=== PATIENT | male | born 1980 | race Two or more races ===

== ENCOUNTER 2018-02-04 04:22 | Emergency (ER) | payer OTHER ==
[~2018-02-04] VITALS: Ht 180.3 cm; Wt 81.6 kg
[2018-02-04] MEDS ORDERED: KETOROLAC TROMETH 60MG/2ML VIAL IM ONE (07:00)
[2018-02-04 07:15] VITALS: BP 117/82
== END 2018-02-04 07:40 | disposition home or self-care (01) ==
LOC: ER 04:22
DX: S52.571A Other intraarticular fracture of lower end of right radius, initial encounter for closed fracture (principal); W01.0XXA Fall on same level from slipping, tripping and stumbling without subsequent striking against object, initial encounter; Y93.89 Activity, other specified; Y92.89 Other specified places as the place of occurrence of the external cause; Y99.8 Other external cause status
CPT/HCPCS: 29125; 73090; 73110; 73130; 96372; 99284; J1885